=== PATIENT | female | born 1945 | race Caucasian/White ===

== ENCOUNTER 2020-03-25 05:33 | Outpatient (RCR) | payer SELFPAY ==
[2020-03-21 11:56] VITALS: BP 159/99
[2020-03-21 12:38] LABS: BASOPHILS % (AUTO) 1 % (0-10); EOSINOPHILS % (AUTO) 1 % (0-10); HEMATOCRIT 35 % (35-52); HEMOGLOBIN 10.4 G/DL (11.5-16.0); LYMPHOCYTES # (AUTO) 0.6 X 10^3 (1.0-4.0); LYMPHOCYTES % (AUTO) 20 % (12-44); MEAN CORPUSCULAR HEMOGLOBIN 22 PG (25-34); MEAN CORPUSCULAR HGB CONC 30 G/DL (32-36); MEAN CORPUSCULAR VOLUME 75 FL (80-99); MEAN PLATELET VOLUME 10.3 FL (7.4-10.4); MONOCYTES # (AUTO) 0.5 X 10^3 (0.0-1.0); MONOCYTES % (AUTO) 16 % (0-12); NEUTROPHILS # (AUTO) 1.9 X 10^3 (1.8-7.8); NEUTROPHILS % (AUTO) 62 % (42-75); RED CELL DISTRIBUTION WIDTH 26.7 % (10.0-14.5); WHITE BLOOD COUNT 3.1 10^3/uL (4.3-11.0)
[2020-03-21 12:48] LABS: PLATELET COUNT 538 10^3/uL (130-400)
[~2020-03-25] VITALS: Ht 167.7 cm; Wt 84.0 kg
[~2020-03-25 05:33] MED LIST: AMLO10TA7 PO; AMLO5TAB4 PO; AMLO5TAB9 PO; AMOX500C2 PO; GUAI1CAP51 PO; OMEP40CA27 PO
== END 2020-03-25 10:19 | disposition home or self-care (01) ==
LOC: PREOP 05:33
PROVIDERS: ATTEND Surgery
DX: Z01.812 Encounter for preprocedural laboratory examination (principal); C18.9 Malignant neoplasm of colon, unspecified; Z11.2 Encounter for screening for other bacterial diseases; Z20.828 Contact with and (suspected) exposure to other viral communicable diseases
CPT/HCPCS: 36415; 85025; 86850; 86900; 86901; 87081; 87635

== ENCOUNTER 2020-03-27 08:10 | Inpatient (IN) | payer MEDICARE ==
[~2020-03-27] VITALS: Ht 167.7 cm; Wt 84.0 kg
[2020-03-27] VITALS (10 sets, daily range): BP systolic 131–179; BP diastolic 67–91
[2020-03-27] MEDS ORDERED: ceFAZolin 2 GM IV Premixed 50 ML IV ONE (08:15)
--- OUTSIDE RECORDS SUMMARY | 2020-03-27 08:28 | XMS REPORT | Continuity of Care Document ---
Author Organization Unknown Address Unknown Phone Unavailable Allergies Active Description Code Type Severity Reaction Onset Reported/Identified Relationship to Patient Clinical Status Yes levofloxacin [id number] Drug Allergy Unknown N/A 03/04/2020 Medications There is no data. Problems Date Dx Coded Attending Type Code Diagnosis Diagnosed By 03/06/2020 ROSE MARY MELTON MD, Ot C18.7 MALIGNANT NEOPLASM OF SIGMOID COLON 03/06/2020 ROSE MARY MELTON MD, Ot D50.0 IRON DEFICIENCY ANEMIA SECONDARY TO BLOO 03/06/2020 ROSE MARY MELTON MD, Ot E66.9 OBESITY, UNSPECIFIED 03/06/2020 ROSE MARY MELTON MD, Ot I10 ESSENTIAL (PRIMARY) HYPERTENSION 03/06/2020 ROSE MARY MELTON MD Ot K20.8 OTHER ESOPHAGITIS 03/06/2020 ROSE MARY MELTON MD, Ot K26.0 ACUTE DUODENAL ULCER WITH HEMORRHAGE 03/06/2020 ROSE MARY MELTON MD, Ot K26.3 ACUTE DUODENAL ULCER WITHOUT HEMORRHAGE 03/06/2020 ROSE MARY MELTON MD, Ot K29.5 0 UNSPECIFIED CHRONIC GASTRITIS WITHOUT BL 03/06/2020 ROSE MARY MELTON MD, Ot K44.9 DIAPHRAGMATIC HERNIA WITHOUT OBSTRUCTION 03/06/2020 ROSE MARY MELTON MD, Ot K57.9 0 DVRTCLOS OF INTEST, PART UNSP, W/O PERF 03/06/2020 ROSE MARY MELTON MD, Ot K63.5 POLYP OF COLON 03/06/2020 ROSE MARY MELTON MD, Ot K63.9 DISEASE OF INTESTINE, UNSPECIFIED 03/06/2020 ROSE MARY MELTON MD, Ot K64.8 OTHER HEMORRHOIDS 03/06/2020 ROSE MARY MELTON MD, Ot K92.2 GASTROINTESTINAL HEMORRHAGE, UNSPECIFIED 03/06/2020 ROSE MARY MELTON MD, Ot M54.9 DORSALGIA, UNSPECIFIED 03/06/2020 ROSE MARY MELTON MD, Ot R05 COUGH 03/06/2020 ROSE MARY MELTON MD, Ot Z68.3 0 BODY MASS INDEX (BMI) 30.0-30.9, ADULT 03/25/2020 DELANAHI DO, JALEEL B Ot C18.9 MALIGNANT NEOPLASM OF COLON, UNSPECIFIED 03/25/2020 KELECHIMINOT DO, JALEEL B Ot Z01.8 12 ENCOUNTER FOR PREPROCEDURAL LABORATORY E 03/25/2020 KELECHIMINOT DO, JALEEL B Ot Z01.8 18 ENCOUNTER FOR OTHER PREPROCEDURAL EXAMIN 03/25/2020 ZENAIDA HOPE, JALEEL B Ot C18.9 MALIGNANT NEOPLASM OF COLON, UNSPECIFIED 03/25/2020 KELECHIMINOT DO, JALEEL B Ot Z01.8 12 ENCOUNTER FOR PREPROCEDURAL LABORATORY E 03/25/2020 KELECHIMINOT , JALEEL B Ot Z01.8 18 ENCOUNTER FOR OTHER PREPROCEDURAL EXAMIN Procedures Code Description Performed By Per formed On [id number] EX CISION OF ESOPHAGOGASTRIC JUNCTION, EN 03/05/2020 [id number] EX CISION OF STOMACH, PYLORUS, ENDO, DIAG 03/05/2020 [id number] EX CISION OF DESCENDING COLON, ENDO, DIAG 03/05/2020 [id number] EX CISION OF SIGMOID COLON, ENDO, DIAGN 03/05/2020 [id number] EX CISION OF RECTUM, ENDO, DIAGN 03/05/2020 Results Test Result Range [facility] - 01/04/19 11:37 GLUCOSE 94 mg/dL 65-99 UREA NITROGEN (BUN) 11 mg/dL 7-25 CREATININE 0.77 mg/dL 0.60-0.93 eGFR NON-AFR. THAI 78 mL/min/1.73m2 > OR = 60 eGFR 90 mL/min/1.73m2 > OR = 60 BUN/CREATININE RATIO NOT APPLICABLE (calc) 6-22 SODIUM 140 mmol/L 135-146 POTASSIUM 4.1 mmol/L 3.5-5.3 CHLORIDE 109 mmol/L 98-110 CARBON DIOXIDE 24 mmol/L 20-32 CALCIUM 8.7 mg/dL 8.6-10.4 PROTEIN, TOTAL 7.0 g/dL 6.1-8.1 ALBUMIN 3.6 g/dL 3.6-5.1 GLOBULIN 3.4 g/dL (calc) 1.9-3.7 ALBUMIN/GLOBULIN RATIO 1.1 (calc) 1.0-2. 5 BILIRUBIN, TOTAL 0.3 mg/dL 0.2-1.2 ALKALINE PHOSPHATASE 97 U/L 33-130 AST 12 U/L 10-35 ALT 7 U/L 6-29 CBC - 03/01/20 08:27 WHITE BLOOD CELL COUNT 4.3 Thousand/uL 3 .8-10.8 RED BLOOD CELL COUNT 2.77 Million/uL 3.8 0-5.10 HEMOGLOBIN 4.2 g/dL 11.7-15.5 HEMATOCRIT 18.8 % 35.0-45.0 MCV 67.9 fL 80.0-100.0 MCH 15.2 pg 27.0-33.0 MCHC 22.3 g/dL 32.0-36.0 RDW 20.6 % 11.0-15.0 PLATELET COUNT 420 Thousand/uL 140-400 MPV 10.9 fL 7.5-12.5 ABSOLUTE NEUTROPHILS 2838 cells/uL 1500- 7800 ABSOLUTE LYMPHOCYTES 946 cells/uL 850-39 00 ABSOLUTE MONOCYTES 301 cells/uL 200-950 ABSOLUTE EOSINOPHILS 43 cells/uL 15-500 ABSOLUTE BASOPHILS 43 cells/uL 0-200 NEUTROPHILS 66 % NRG LYMPHOCYTES 22 % NRG MONOCYTES 7 % NRG EOSINOPHILS 1 % NRG BASOPHILS 1 % NRG ABSOLUTE BAND NEUTROPHILS 86 cells/uL 0- 750 ABSOLUTE METAMYELOCYTES 43 cells/uL BAND NEUTROPHILS 2 % NRG METAMYELOCYTES 1 % NRG ABSOLUTE NUCLEATED RBC 172 cells/uL NUCLEATED RBC 4 /100 WBC COMMENT(S) NRG Complete blood count (CBC) with automate d white blood cell (WBC) differential - 03/04/20 12:20 Blood leukocytes automated count (number/volume) 4.7 10*3/uL 4.3-11.0 Blood erythrocytes automated count (number/volume) 2.57 10*6/uL 4.35-5.85 Venous blood hemoglobin measurement (mass/volume) 4.0 g/dL 11.5-16.0 Blood hematocrit (volume fraction) 17 % 35-52 Automated erythrocyte mean corpuscular volume 65 [ foz_us] 80-99 Automated erythrocyte mean corpuscular h emoglobin (mass per erythrocyte) 16 pg 25-34 Automated erythrocyte mean corpuscular h emoglobin concentration measurement (mass/volume) 24 g/dL 32-36 Automated erythrocyte distribution width ratio 22. 5 % 10.0- 14.5 Automated blood platelet count (count/volume) 375 10*3/uL 130-400 Automated blood platelet mean volume measurement 10.1 [foz_us] 7.4-10.4 Automated blood neutrophils/100 leukocytes 60 % 42-75 Automated blood lymphocytes/100 leukocytes 21 % 12-44 Blood monocytes/100 leukocytes 18 % 0-12 Automated blood eosinophils/100 leukocytes 1 % 0-10 Automated blood basophils/100 leukocytes 1 % 0-10 Blood neutrophils automated count (number/volume) 2.8 10*3 1.8-7.8 Blood lymphocytes automated count (number/volume) 1.0 10*3 1.0-4.0 Blood monocytes automated count (number/volume) 0. 9 10*3 0.0-1.0 Automated eosinophil count 0.0 10*3/uL 0 .0-0.3 Automated blood basophil count (count/volume) 0.0 10*3/uL 0.0-0.1 Comprehensive metabolic panel - 03/04/20 12:20 Serum or plasma sodium measurement (moles/volume) 137 mmol/L 135-145 Serum or plasma potassium measurement (moles/volume) 3.7 mmol/L 3.6-5.0 Serum or plasma chloride measurement (moles/volume) 109 mmol/L 98-107 Carbon dioxide 21 mmol/L 21-32 Serum or plasma anion gap determination (moles/volume) 7 mmol/L 5-14 Serum or plasma urea nitrogen measurement (mass/volume ) 12 mg/dL 7-18 Serum or plasma creatinine measurement (mass/volume) 0.83 mg/dL 0.60-1.30 Serum or plasma urea nitrogen/creatinine mass ratio 14 NRG Serum or plasma creatinine measurement w ith calculation of estimated glomerular filtration rate > NRG Serum or plasma glucose measurement (mass/volume) 107 mg/dL 70-105 Serum or plasma calcium measurement (mass/volume) 7.7 mg/dL 8.5-10.1 Serum or plasma total bilirubin measurement (mass/volu me) 0.5 mg/dL 0.1-1.0 Serum or plasma alkaline phosphatase keshav surement (enzymatic activity/volume) 91 U/L 40-136 Serum or plasma aspartate aminotransfera se measurement (enzymatic activity/volume) 13 U/L 5-34 Serum or plasma alanine aminotransferase measurement (enzymatic activity/volume) < U/L 0-55 Serum or plasma protein measurement (mass/volume) 6.6 g/dL 6.4-8.2 Serum or plasma albumin measurement (mass/volume) 3.1 g/dL 3.2-4.5 CALCIUM CORRECTED 8.4 mg/dL 8.5-10.1 RED CELLS LEUKO REDUCED AS1 - 03/04/20 1 2:20 RED CELLS LEUKO REDUCED AS1 N OT AVAILABLE NRG Blood type T Indirect antibody screen pa lucero - 03/04/20 12:20 WRISTBAND NUMBER [id number] NRG ABO+Rh group AP NRG Blood group antibody screen NEGATIVE NR G PT panel in platelet poor plasma by coag ulation assay - 03/04/20 12:20 Prothrombin time (PT) in platelet poor plasma by coagu lation assay 14.5 s 12.2-14.7 INR in platelet poor plasma or blood by coagulation as say 1.1 0.8-1.4 Serum iron and total iron binding capaci ty panel - 03/04/20 13:10 TIBC 332 % 280-380 UIBC 324 % 55-450 Serum or plasma iron measurement (mass/volume) < % 35-180 Total iron binding capacity and transferrin saturation measurement 2 % 15-50 Serum or plasma ferritin measurement (mass/volume) 2.6 % 20.0-177.0 Complete blood count (CBC) with automate d white blood cell (WBC) differential - 03/04/20 20:50 Blood leukocytes automated count (number/volume) 5.4 10*3/uL 4.3-11.0 Blood erythrocytes automated count (number/volume) 3.32 10*6/uL 4.35-5.85 Venous blood hemoglobin measurement (mass/volume) 6.2 g/dL 11.5-16.0 Blood hematocrit (volume fraction) 23 % 35-52 Automated erythrocyte mean corpuscular volume 69 [ foz_us] 80-99 Automated erythrocyte mean corpuscular h emoglobin (mass per erythrocyte) 19 pg 25-34 Automated erythrocyte mean corpuscular h emoglobin concentration measurement (mass/volume) 27 g/dL 32-36 Automated erythrocyte distribution width ratio 26. 2 % 10.0- 14.5 Automated blood platelet count (count/volume) 382 10*3/uL 130-400 Automated blood platelet mean volume measurement 10.5 [foz_us] 7.4-10.4 Automated blood neutrophils/100 leukocytes 55 % 42-75 Automated blood lymphocytes/100 leukocytes 21 % 12-44 Blood monocytes/100 leukocytes 22 % 0-12 Automated blood eosinophils/100 leukocytes 1 % 0-10 Automated blood basophils/100 leukocytes 1 % 0-10 Blood neutrophils automated count (number/volume) 3.0 10*3 1.8-7.8 Blood lymphocytes automated count (number/volume) 1.1 10*3 1.0-4.0 Blood monocytes automated count (number/volume) 1. 2 10*3 0.0-1.0 Automated eosinophil count 0.1 10*3/uL 0 .0-0.3 Automated blood basophil count (count/volume) 0.1 10*3/uL 0.0-0.1 Manual absolute plasma cell count - 02/16 20:50 Blood monocytes/100 leukocytes 18 % NRG Manual blood segmented neutrophils/100 leukocytes 57 % NRG Blood band neutrophils/100 leukocytes 2 % NRG Manual blood lymphocytes/100 leukocytes 19 % NRG Manual eosinophils/100 leukocytes in nose 3 % NRG Manual blood basophils/100 leukocytes 1 % NRG Blood anisocytosis detection by light microscopy M ARKED NRG Blood poikilocytosis detection by light microscopy MODERATE NRG Manual blood nucleated erythrocytes/100 leukocytes ratio 3 NRG Blood hypochromia detection by light microscopy MA RKED NRG Blood microcytes detection by light microscopy MOD ERATE NRG Blood dacrocytes detection by light microscopy SLI GHT NRG Complete blood count (CBC) with automate d white blood cell (WBC) differential - 03/05/20 08:35 Blood leukocytes automated count (number/volume) 4.6 10*3/uL 4.3-11.0 Blood erythrocytes automated count (number/volume) 4.12 10*6/uL 4.35-5.85 Venous blood hemoglobin measurement (mass/volume) 8.8 g/dL 11.5-16.0 Blood hematocrit (volume fraction) 29 % 35-52 Automated erythrocyte mean corpuscular volume 71 [ foz_us] 80-99 Automated erythrocyte mean corpuscular h emoglobin (mass per erythrocyte) 21 pg 25-34 Automated erythrocyte mean corpuscular h emoglobin concentration measurement (mass/volume) 30 g/dL 32-36 Automated erythrocyte distribution width ratio 26. 1 % 10.0- 14.5 Automated blood platelet count (count/volume) 327 10*3/uL 130-400 Automated blood platelet mean volume measurement 10.6 [foz_us] 7.4-10.4 Automated blood neutrophils/100 leukocytes 58 % 42-75 Automated blood lymphocytes/100 leukocytes 22 % 12-44 Blood monocytes/100 leukocytes 18 % 0-12 Automated blood eosinophils/100 leukocytes 2 % 0-10 Automated blood basophils/100 leukocytes 1 % 0-10 Blood neutrophils automated count (number/volume) 2.7 10*3 1.8-7.8 Blood lymphocytes automated count (number/volume) 1.0 10*3 1.0-4.0 Blood monocytes automated count (number/volume) 0. 8 10*3 0.0-1.0 Automated eosinophil count 0.1 10*3/uL 0 .0-0.3 Automated blood basophil count (count/volume) 0.1 10*3/uL 0.0-0.1 Comprehensive metabolic panel - 03/05/20 08:35 Serum or plasma sodium measurement (moles/volume) 138 mmol/L 135-145 Serum or plasma potassium measurement (moles/volume) 3.6 mmol/L 3.6-5.0 Serum or plasma chloride measurement (moles/volume) 112 mmol/L 98-107 Carbon dioxide 18 mmol/L 21-32 Serum or plasma anion gap determination (moles/volume) 8 mmol/L 5-14 Serum or plasma urea nitrogen measurement (mass/volume ) 7 mg/dL 7-18 Serum or plasma creatinine measurement (mass/volume) 0.75 mg/dL 0.60-1.30 Serum or plasma urea nitrogen/creatinine mass ratio 9 NRG Serum or plasma creatinine measurement w ith calculation of estimated glomerular filtration rate > NRG Serum or plasma glucose measurement (mass/volume) 87 mg/dL 70-105 Serum or plasma calcium measurement (mass/volume) 7.8 mg/dL 8.5-10.1 Serum or plasma total bilirubin measurement (mass/volu me) 0.8 mg/dL 0.1-1.0 Serum or plasma alkaline phosphatase keshav surement (enzymatic activity/volume) 97 U/L 40-136 Serum or plasma aspartate aminotransfera se measurement (enzymatic activity/volume) 14 U/L 5-34 Serum or plasma alanine aminotransferase measurement (enzymatic activity/volume) 6 U/L 0-55 Serum or plasma protein measurement (mass/volume) 6.5 g/dL 6.4-8.2 Serum or plasma albumin measurement (mass/volume) 3.1 g/dL 3.2-4.5 CALCIUM CORRECTED 8.5 mg/dL 8.5-10.1 Coronavirus SARS-CoV-2 SO 2019 - 0 11:20 Coronavirus Ab [Units/volume] in Serum Negative Negative Complete blood count (CBC) with automate d white blood cell (WBC) differential - 03/06/20 05:23 Blood leukocytes automated count (number/volume) 5.0 10*3/uL 4.3-11.0 Blood erythrocytes automated count (number/volume) 3.91 10*6/uL 4.35-5.85 Venous blood hemoglobin measurement (mass/volume) 8.4 g/dL 11.5-16.0 Blood hematocrit (volume fraction) 28 % 35-52 Automated erythrocyte mean corpuscular volume 72 [ foz_us] 80-99 Automated erythrocyte mean corpuscular h emoglobin (mass per erythrocyte) 22 pg 25-34 Automated erythrocyte mean corpuscular h emoglobin concentration measurement (mass/volume) 30 g/dL 32-36 Automated erythrocyte distribution width ratio 26. 1 % 10.0- 14.5 Automated blood platelet count (count/volume) 289 10*3/uL 130-400 Automated blood platelet mean volume measurement 10.5 [foz_us] 7.4-10.4 Automated blood neutrophils/100 leukocytes 69 % 42-75 Automated blood lymphocytes/100 leukocytes 18 % 12-44 Blood monocytes/100 leukocytes 12 % 0-12 Automated blood eosinophils/100 leukocytes 1 % 0-10 Automated blood basophils/100 leukocytes 1 % 0-10 Blood neutrophils automated count (number/volume) 3.4 10*3 1.8-7.8 Blood lymphocytes automated count (number/volume) 0.9 10*3 1.0-4.0 Blood monocytes automated count (number/volume) 0. 6 10*3 0.0-1.0 Automated eosinophil count 0.1 10*3/uL 0 .0-0.3 Automated blood basophil count (count/volume) 0.0 10*3/uL 0.0-0.1 Whole blood basic metabolic panel - 04/18 05:23 Serum or plasma sodium measurement (moles/volume) 138 mmol/L 135-145 Serum or plasma potassium measurement (moles/volume) 3.4 mmol/L 3.6-5.0 Serum or plasma chloride measurement (moles/volume) 113 mmol/L 98-107 Carbon dioxide 16 mmol/L 21-32 Serum or plasma anion gap determination (moles/volume) 9 mmol/L 5-14 Serum or plasma urea nitrogen measurement (mass/volume ) 6 mg/dL 7-18 Serum or plasma creatinine measurement (mass/volume) 0.73 mg/dL 0.60-1.30 Serum or plasma urea nitrogen/creatinine mass ratio 8 NRG Serum or plasma creatinine measurement w ith calculation of estimated glomerular filtration rate > NRG Serum or plasma glucose measurement (mass/volume) 86 mg/dL 70-105 Serum or plasma calcium measurement (mass/volume) 7.3 mg/dL 8.5-10.1 Complete blood count (CBC) with automate d white blood cell (WBC) differential - 03/21/20 12:15 Blood leukocytes automated count (number/volume) 3.1 10*3/uL 4.3-11.0 Blood erythrocytes automated count (number/volume) 4.70 10*6/uL 4.35-5.85 Venous blood hemoglobin measurement (mass/volume) 10.4 g/dL 11.5-16.0 Blood hematocrit (volume fraction) 35 % 35-52 Automated erythrocyte mean corpuscular volume 75 [ foz_us] 80-99 Automated erythrocyte mean corpuscular h emoglobin (mass per erythrocyte) 22 pg 25-34 Automated erythrocyte mean corpuscular h emoglobin concentration measurement (mass/volume) 30 g/dL 32-36 Automated erythrocyte distribution width ratio 26. 7 % 10.0- 14.5 Automated blood platelet count (count/volume) 538 10*3/uL 130-400 Automated blood platelet mean volume measurement 10.3 [foz_us] 7.4-10.4 Automated blood neutrophils/100 leukocytes 62 % 42-75 Automated blood lymphocytes/100 leukocytes 20 % 12-44 Blood monocytes/100 leukocytes 16 % 0-12 Automated blood eosinophils/100 leukocytes 1 % 0-10 Automated blood basophils/100 leukocytes 1 % 0-10 Blood neutrophils automated count (number/volume) 1.9 10*3 1.8-7.8 Blood lymphocytes automated count (number/volume) 0.6 10*3 1.0-4.0 Blood monocytes automated count (number/volume) 0. 5 10*3 0.0-1.0 Automated eosinophil count 0.0 10*3/uL 0 .0-0.3 Automated blood basophil count (count/volume) 0.0 10*3/uL 0.0-0.1 Blood type T Indirect antibody screen pa lucero - 03/21/20 12:15 WRISTBAND NUMBER BC [id number] NRG ABO+Rh group AP NRG Blood group antibody screen NEGATIVE NR G Methicillin resistant Staphylococcus aur eus (MRSA) screening culture - 03/21/20 12:15 Methicillin resistant Staphylococcus aureus (MRSA) scr eening culture NEG NRG Encounters ACCT No. Visit Date/Time Discharge Status Pt. Type Provider Facility Loc./Unit Complaint [id number] 03/01/2020 08:20:00 03/01/2020 23:59: 59 CLS Outpatient KARIE DICKINSON [facility] ([facility] [id number] 03/01/2020 08:20:00 Document Registration [id number] 01/04/2019 10:40:00 Document Registration [id number] 03/25/2020 05:33:00 020 10:19:00 DIS Outpatient JALEEL ESTEVEZ DO [facility] PREOP COLON CANCER [id number] 03/04/2020 12:27:00 020 12:15:00 DIS Outpatient ROSE MARY MELTON MD [facility] 4TH SYMPTOMATIC ANEMIA [id number] 05/23/2014 08:06:00 014 23:59:59 CLS Outpatient [id number] 03/27/2020 10:00:00 P EN Preadmit JALEEL ESTEVEZ DO [facility]
[2020-03-27] MEDS ORDERED: BUP/EPI 0.5% 1:200,000 (MARCAINE) 10ML VIAL IJ ONE (08:48)
[2020-03-27] MEDS ORDERED: FAMOTIDINE 20MG/2ML IV (PEPCID) IV ONE (09:15)
[2020-03-27] MEDS: LACTATED RINGERS 1,000 ML IV PRN ×2 (09:24→11:00)
[2020-03-27] MEDS ORDERED: FAMOTIDINE 20MG/2ML IV (PEPCID) ONE (09:26)
[2020-03-27] MEDS ORDERED: MIDAZOLAM 2 MG/2 ML (VERSED) VIAL ONE (10:34)
[2020-03-27] MEDS ORDERED: proPOfol 200 MG/20 ML (DIPRIVAN) VIAL IV ONE (10:35)
[2020-03-27] MEDS ORDERED: SEVOFLURANE (ULTANE) 15 ML INHAL SOLN ONE ×7 (10:35→12:38)
[2020-03-27] MEDS ORDERED: ONDANSETRON 4 MG/2 ML (SDV) Z0FRAN ONE (10:35)
[2020-03-27] MEDS ORDERED: ROCURONIUM 10 MG/ML 5 ML SYRINGE IV ONE (10:35)
[2020-03-27] MEDS ORDERED: fentaNYL INJECTION 100 MCG/2 ML AMP ONE ×2 (10:35→11:21)
[2020-03-27] MEDS ORDERED: LIDOCAINE PF 2% 5 ML (XYLOCAINE) VIAL ONE (10:35)
--- NOTE | 2020-03-27 10:38 | Progress Note-Pre Operative ---
Pre-Operative Progress Note H&P Reviewed The H&P was reviewed, patient examined and no changes noted. Time Seen by Provider: 10:01 Date H&P Reviewed: Mar 27, 2020 Time H&P Reviewed: 10:02 Pre-Operative Diagnosis: Sigmoid Colon CA JALEEL ESTEVEZ DO Mar 27, 2020 10:37
[2020-03-27] MEDS ORDERED: ESMOLOL 100 MG/10 ML (BREVIBLOC) VIAL ONE (11:32)
--- NOTE | 2020-03-27 12:12 | Progress Note-Post Operative ---
Post-Operative Progess Note Surgeon (s)/Combat Systems Operator [employer] (s) Surgeon JALEEL ESTEVEZ DO Combat Systems Operator [employer]: Guillermo Pre-Operative Diagnosis Sigmoid Colon CA Post-Operative Diagnosis same pending path Procedure & Operative Findings Date of Procedure 03/27/20 Procedure Performed/Findings 1. Lap hand assisted sigmoid colon resection 2. Takedown of splenic flexure Anesthesia Type GET Estimated Blood Loss Estimated blood loss (mL): minimal Specimens/Packing Specimens Removed portion of desc colon and sigmoid colon JALEEL ESTEVEZ DO Mar 27, 2020 12:12
[2020-03-27] MEDS ORDERED: ROPIVACAINE 5MG/ML 30ML VIAL ONE (12:19)
[2020-03-27] MEDS ORDERED: ONDANSETRON 4 MG/2 ML (SDV) Z0FRAN IVP PRN (12:30)
[2020-03-27] MEDS ORDERED: HYDROmorphone 2 MG/ML VIAL (DILAUDID) IV ONE (12:30)
[2020-03-27] MEDS ORDERED: GLYCOPYRROLATE 0.2 MG/ML (ROBINUL) 2 ML VIAL ONE (12:39)
[2020-03-27] MEDS ORDERED: NEOSTIGMINE 3 MG/3 ML VIAL ONE (12:39)
--- NOTE | 2020-03-27 13:27 | NUR ---
PATIENT TO FLOOR AT THIS TIME VIA CART ACCOMPANIED BY RECOVERY ROOM STAFF. THIS RN WILL ASSUME CARE OF THIS PATIENT AT THIS TIME.
[2020-03-27] MEDS ORDERED: CATHETER FLUSH 10 ML SYR IV PRN (14:00)
[2020-03-27] MEDS: metroNIDAZOLE 500MG/100ML IVPB 100 ML IV SCH ×2 (14:08→22:37)
[2020-03-27] MEDS: KETOROLAC 30 MG/ML VIAL IVP SCH ×2 (14:08→20:18)
[2020-03-27] MEDS: LACTATED RINGERS 1,000 ML IV SCH ×2 (14:08→20:21)
[2020-03-27] MEDS: morphine INJ 4 MG/ML 1 ML (VIAL/SYRINGE) IVP PRN ×2 (14:08→17:44)
[2020-03-27] MEDS: ACETAMINOPHEN 500 MG TAB (TYLENOL) PO SCH ×2 (14:09→22:00)
[2020-03-27] MEDS: ONDANSETRON 4 MG/2 ML (SDV) Z0FRAN IVP PRN ×2 (14:25→20:18)
--- NOTE | 2020-03-27 16:28 | NUR ---
dilaudid given in PACU by Betty Dunaway RN patient cont to be in pain after pain medications
[2020-03-27] MEDS: ceFAZolin 2 GM IV Premixed 50 ML IV SCH (17:44)
[2020-03-28 00:11] VITALS: BP 162/75
[2020-03-28] MEDS: morphine INJ 4 MG/ML 1 ML (VIAL/SYRINGE) IVP PRN (00:22)
[2020-03-28] MEDS: ceFAZolin 2 GM IV Premixed 50 ML IV SCH (02:00)
[2020-03-28] MEDS: KETOROLAC 30 MG/ML VIAL IVP SCH ×4 (02:21→20:08)
[2020-03-28 04:25] VITALS: BP 129/75
--- NOTE | 2020-03-28 06:48 | Anesthesia-General Post-Op ---
General Patient Condition Mental Status/LOC: Same as Preop Cardiovascular: Satisfactory Nausea/Vomiting: Absent Respiratory: Satisfactory Pain: Controlled Complications: Absent Post Op Complications Complications None Follow Up Care/Instructions Patient Instructions None needed. Anesthesia/Patient Condition Patient Condition Patient is doing well, no complaints, stable vital signs, no apparent adverse anesthesia problems. No complications reported per nursing. REDD SULLIVAN CRNA Mar 28, 2020 06:48
[2020-03-28] MEDS: LACTATED RINGERS 1,000 ML IV SCH ×2 (07:05→13:59)
[2020-03-28] MEDS: ACETAMINOPHEN 500 MG TAB (TYLENOL) PO SCH ×3 (07:06→20:09)
--- NOTE | 2020-03-28 07:12 | OPERATIVE REPORT ---
DATE OF SERVICE: PREOPERATIVE DIAGNOSES: Descending colon cancer. POSTOPERATIVE DIAGNOSES: Descending colon cancer. PROCEDURES: 1. Laparoscopic hand assisted sigmoid colon resection. 2. Takedown of splenic flexure. SURGEON: Jaleel Burgos DO VENDING MACHINE OPERATOR: Trey Li DO. ANESTHESIA: General endotracheal tube. SPECIMEN: Portion of sigmoid colon. BLOOD LOSS: Less than 100 mL. FLUIDS: Per anesthesia. POSTOPERATIVE CONDITION: Stable. INDICATION FOR PROCEDURE: The patient is a 75-year-old female who unfortunately has a descending colon cancer, needed a resection. FINDINGS: The patient had a colon mass resected most likely in the descending and sigmoid area; felt the liver, did not feel any masses in the liver. PROCEDURE NOTE: After informed consent was obtained, the patient was brought to the operating room, placed on the table in lithotomy position. She was sterilely prepped and draped in normal fashion. A midline incision made with #15 blade, carried down through the skin into subcutaneous tissue, then deepened down to subcutaneous tissue with Bovie electrocautery down to the fascia. Fascia incised with electrocautery, bluntly entered the abdomen, swept a finger around and protected the bowel with my hand as I increased the incision superiorly and inferiorly just enough able to get my hand in. We then placed Lopez and a malleable blade and I made a small incision after first infiltrating with local, made a stab incision with #11 blade a 10 mm incision, carried down through the skin and subcutaneous tissue, then advanced the VersaStep system under direct visualization, watched to come in and then placed a 10 mm port. At this point, then placed the wound protector and then placed a hand port. Next, in the right lower quadrant, placed another 5 mm incisions with the VersaStep using local lidocaine, 11 blade for the stab incision and the VersaStep system, all done under direct visualization. Created pneumoperitoneum, able to visualize the tattooing, could feel the mass, started carefully dissecting with the Bovie electrocautery, coming across the white line of Toldt and the pericolic gutter and then taking this all the way up to the splenic flexure and taking the splenic flexure down using the Bovie cautery as well as hand dissection to dissect and pull the intestine medially. Once it completely freed everything up, I elected to open the hand port, actually able to pull this portion of colon out and elected to do a wedge resection to remove this portion of cancer with at least 6 cm on either side, used a contour stapler distally after getting through the mesentery with Bovie electrocautery and then placed a contour stapler clamping and then firing and transecting and then going above and again made a defect in the mesentery with Bovie electrocautery and blunt dissection. Placed a contour stapler here and then fired thereby transecting and coming across the mesentery going down all the way to the retroperitoneum with a LigaSure, clamping, coagulating and transecting and in this fashion removing this entire portion of colon and passed off the table. At this point, I elected to do a [id number] anastomosis, made a defect in the tinea and then placed a FACUNDO one on either side, clamped it together, held for 30 seconds through a crotch stitch of 3-0 Vicryl and then fired thereby creating a [id number] functional end-to-end anastomosis and then closed the colocolostomy with another FACUNDO-75. This closed nicely. At this point, I then copiously irrigated with normal saline and suctioned all this out. Anastomosis looked good. There was no bleeding. At this point, then pulled the omentum over the intestine and then closed the midline incision closing with #1 double stranded PDS suture running from superior portion to inferior portion, tying to itself, copiously irrigated incisions with normal saline and closing this incision with ana. Area was cleaned and dried, dressing was placed. The patient tolerated the procedure. Sponge, instrument and needle count correct at the end of the case and she was transferred to recovery room in stable condition. Dr. Li assisted in this case helping to make incisions, close incisions, identify anatomy, hold anatomy out of the way. Job ID: [id number] DocumentID: [id number] Dictated Date: 03/27/2020 21:43:43 Technical Training Specialist Date: 03/28/2020 07:11:15 Dictated By: JALEEL BURGOS,
[2020-03-28 08:00] VITALS: BP 152/69
[2020-03-28] MEDS: PANTOPRAZOLE 40 MG (PROTONIX) VIAL IVP SCH (08:28)
--- NOTE | 2020-03-28 11:28 | Progress Note - Surgery ---
Subjective Date Seen by a Provider: Mar 28, 2020 Time Seen by a Provider: 09:28 Subjective/Events-last exam Pt seen and examined, states she feels pretty good today (pain controlled) and tolerating clears. She has not passed gas yet. Review of Systems Pulmonary: No Dyspnea, No Cough Cardiovascular: No: Chest Pain Gastrointestinal: No: Nausea, Vomiting Objective Exam Vital Signs Date Time Temp Pulse Resp B/P (MAP) Pulse Ox O2 Delivery O2 Flow Rate FiO2 03/28/20 08:00 36.2 64 20 152/69 (96) 94 Nasal Cannula 2.00 03/28/20 07:06 36.2 03/28/20 04:25 36.2 98 18 129/75 (93) 92 Nasal Cannula 2.00 03/28/20 03:00 36.2 03/28/20 02:21 36.6 03/28/20 01:00 36.6 03/28/20 00:22 36.6 03/28/20 00:11 36.6 54 16 162/75 (104) 93 Nasal Cannula 2.00 03/27/20 22:01 91 Room Air 03/27/20 22:00 36.2 03/27/20 20:51 94 Nasal Cannula 2.00 03/27/20 20:50 36.2 03/27/20 20:18 36.2 03/27/20 19:57 36.2 65 18 138/67 (90) 94 Nasal Cannula 2.00 03/27/20 15:41 36.5 78 20 141/73 (95) 96 OxyMask 5.00 03/27/20 14:56 94 OxyMask 5.00 03/27/20 13:20 36.8 18 157/81 (106) 93 OxyMask 6 03/27/20 13:18 OxyMask 6 03/27/20 13:10 OxyMask 6 03/27/20 13:10 19 157/81 (106) 93 OxyMask 6 03/27/20 13:00 OxyMask 6 03/27/20 13:00 22 168/80 (109) 93 OxyMask 6 03/27/20 12:50 24 177/87 (117) 93 OxyMask 15 03/27/20 12:45 OxyMask 15 03/27/20 12:40 23 178/88 (118) 96 OxyMask 6 03/27/20 12:30 17 178/91 (120) 95 15 03/27/20 12:27 OxyMask 10 03/27/20 12:27 36.4 20 179/90 (119) 95 OxyMask 10 I & O 03/28/20 07:00 Intake Total 1850 ml Output Total 1030 ml Balance 820 ml Capillary Refill : Less Than 3 SecondsLess Than 3 Seconds General Appearance: No Apparent Distress, WD/WN Respiratory: Lungs Clear, Normal Breath Sounds, No Accessory Muscle Use, No Re spiratory Distress Cardiovascular: Regular Rate, Rhythm, No Murmur Gastrointestinal: soft, tenderness (minimal at midline incision), other (incisions are C/D/I) Assessment/Plan Assessment/Plan Assessment/Plan S/P Colon resection with primary anastomosis Pt encouraged to ambulate and use IS. Will increase to a soft diet. Benji BATES. JALEEL ESTEVEZ DO Mar 28, 2020 11:28
[2020-03-28 12:00] VITALS: BP 170/78
[2020-03-28] MEDS: ENOXAPARIN 40 MG/0.4 ML (LOVENOX) SYR SC SCH (12:05)
--- NOTE | 2020-03-28 13:00 | NUR ---
PT AMBULATED 300FT IN HALLWAY WITH WALKER, STANDBY ASSIST. TOLERATED WELL.
[2020-03-28] MEDS ORDERED: amLODIPine 5 MG (NORVASC) TAB PO ONE (14:00)
[2020-03-28 16:26] VITALS: BP 149/71
[2020-03-28 19:49] VITALS: BP 153/81
[2020-03-29 00:53] VITALS: BP 167/65
[2020-03-29] MEDS: KETOROLAC 30 MG/ML VIAL IVP SCH ×2 (02:00→07:47)
[2020-03-29 03:56] VITALS: BP 181/79
[2020-03-29] MEDS: ACETAMINOPHEN 500 MG TAB (TYLENOL) PO SCH (05:17)
[2020-03-29 07:42] VITALS: BP 190/80
[2020-03-29 07:53] VITALS: BP 168/80
[2020-03-29] MEDS ORDERED: amLODIPine 5 MG (NORVASC) TAB PO SCH (09:00)
[2020-03-29] MEDS: PANTOPRAZOLE 40 MG (PROTONIX) VIAL IVP SCH (09:06)
[2020-03-29 11:28] VITALS: BP 180/70
--- NOTE | 2020-03-29 12:03 | Discharge Inst-Surgical ---
Discharge Inst-Surgical Depart Medication/Instructions New, Converted or Re-Newed RX: Other (use ibuprofen or tylenol at home for pain) Patient Instructions Follow up Appt: Make appointment for 1 week. [phone] Instructions: No lifting greater than 20 pounds. No strenuous activity. May shower in 24 hours, no tub bath or soaking. Use incentive spirometer at home as directed. No Smoking Skin/Wound Care: May remove bandages in am. You need to leave the ana in place and come in to clinic to have them removed. Symptoms to Report: Appetite Changes, Extremity Discoloration, Numbness/Tingling, Swelling Increased , Bleeding Excessive, Eyesight Changes, Pain Increased, Urine Color Change, Constipation(Persistent), Fever over 101 degree F, Pain/Pressure in chest, Urinating Difficulty, Cough Up/Vomit Blood, Heart Beat Irreg/Pounding, Pain/Pressure in jaw, Cramps in feet or legs, Lightheadedness, Pain/Pressure in shoulder, Diarrhea(Persistent), Memory Changes Suddenly, Questions/Concerns, Weight gain consecutive days, Dizziness/Fainting, Nausea/Vomiting, Shortness of Breath, Weight gain over 2 pounds If questions or concerns contact your physician Or seek help at emergency department. Activity Activity as Tolerated: Yes Activity Instructions: Avoid Stress to Incision Driving Instructions: No Driving/Refer to Dr. Arreaga Discharge Diet: No Restrictions Diet After 24 Hours: Clear Liquid if Nauseous If Any Problems/Questions/Issu: Contact Your Physician, Go to Emergency Room Skin/Wound Care Infection Signs and Symptoms: Increased Redness, Foul Odor of Wound, Increased Drainage, Skin Itchy or Has a Rash, Increased Swelling, Temperature Above 101 F Bathing Instructions: Shower Stitches/[place]/Dermabond Dis: Care of JALEEL Singh DO Mar 29, 2020 12:03
[2020-03-29] MEDS: ENOXAPARIN 40 MG/0.4 ML (LOVENOX) SYR SC SCH (12:54)
[2020-03-29 13:20] VITALS: BP 180/70
== END 2020-03-29 13:20 | disposition home or self-care (01) | DRG 331 ==
LOC: 4TH 08:10 → SURG 08:11 → 4TH 13:43
PROVIDERS: ADMIT Surgery; ATTEND Surgery
PROC: 0DTN4ZZ Resection of Sigmoid Colon, Percutaneous Endoscopic Approach (ICD-10-PCS; principal; 2020-03-27 10:47)
DX: C18.7 Malignant neoplasm of sigmoid colon (principal)
CPT/HCPCS: 36415; 82565; 86850; 86900; 86901; 94664; 94760

== ENCOUNTER 2020-04-29 13:25 | Outpatient (RCR) | payer MEDICAID, OTHER ==
[~2020-04-29 13:25] MED LIST changes: +AMLO-250 PO; +AMLO-251 PO; -AMLO10TA7 PO; -AMLO5TAB9 PO
[2020-04-29 13:44] LABS: BASOPHILS % (AUTO) 1 % (0-10); EOSINOPHILS % (AUTO) 1 % (0-10); HEMATOCRIT 35 % (35-52); HEMOGLOBIN 10.5 G/DL (11.5-16.0); LYMPHOCYTES # (AUTO) 0.7 X 10^3 (1.0-4.0); LYMPHOCYTES % (AUTO) 20 % (12-44); MEAN CORPUSCULAR HEMOGLOBIN 22 PG (25-34); MEAN CORPUSCULAR HGB CONC 30 G/DL (32-36); MEAN CORPUSCULAR VOLUME 72 FL (80-99); MEAN PLATELET VOLUME 10.1 FL (7.4-10.4); MONOCYTES # (AUTO) 0.6 X 10^3 (0.0-1.0); MONOCYTES % (AUTO) 15 % (0-12); NEUTROPHILS # (AUTO) 2.3 X 10^3 (1.8-7.8); NEUTROPHILS % (AUTO) 63 % (42-75); PLATELET COUNT 372 10^3/uL (130-400); WHITE BLOOD COUNT 3.6 10^3/uL (4.3-11.0)
[2020-04-29 14:13] LABS: ALANINE AMINOTRANSFERASE 13 U/L (0-55); ALBUMIN 3.6 GM/DL (3.2-4.5); ALKALINE PHOSPHATASE 103 U/L (40-136); BILIRUBIN,TOTAL 0.3 MG/DL (0.1-1.0); BUN/CREATININE RATIO 15; CALCIUM 8.6 MG/DL (8.5-10.1); CARBON DIOXIDE 24 MMOL/L (21-32); CHLORIDE 107 MMOL/L (98-107); CREATININE SERUM 0.84 MG/DL (0.60-1.30); GFR ESTIMATED > 60; GLUCOSE 99 MG/DL (70-105); POTASSIUM 3.5 MMOL/L (3.6-5.0); SODIUM 138 MMOL/L (135-145); TOTAL PROTEIN 7.7 GM/DL (6.4-8.2)
== END 2020-07-28 | disposition home or self-care (01) ==
LOC: ONC 13:25
PROVIDERS: ATTEND Internal Medicine Hematology & Oncology
DX: C18.7 Malignant neoplasm of sigmoid colon (principal); D50.9 Iron deficiency anemia, unspecified; Z90.711 Acquired absence of uterus with remaining cervical stump
CPT/HCPCS: 80053; 82378; 85025; G0463; 99214

== ENCOUNTER → 2020-05-03 | Outpatient (CLI) | payer OTHER ==
[~2020-05-03] MED LIST changes: -AMLO-250 PO; -AMLO-251 PO; +AMLO10TA7 PO; +AMLO5TAB9 PO; +CATHETER FLUSH 10 ML SYR IV PRN; +HOLD METFORMIN - RECEIVED CONTRAST 20 ML VIAL IV SCH; +IOHEXOL 350 MG/ML 100 ML (OMNIPAQUE 350) VIAL IV ONE; +NS 100 ML (IVPB) BAG IV ONE
--- NOTE | 2020-05-03 14:04 | Diagnostic Imaging Report ---
PROCEDURE: CT abdomen and pelvis with and without contrast. TECHNIQUE: Precontrast acquisitions were acquired through the abdomen and pelvis. Multiple contiguous axial images were obtained through the abdomen and pelvis after the administration of intravenous contrast. Auto Exposure Controls were utilized during the CT exam to meet ALARA standards for radiation dose reduction. DATE: May 03, 2020. COMPARISON: CT abdomen pelvis May 18, 2012. INDICATION: 75-year-old female, history of malignancy involving the sigmoid colon. Evaluation for residual or recurrent malignancy and/or metastatic disease. FINDINGS: There is a cystic lesion in the right middle lobe with adjacent groundglass attenuation which is an interval change since May 18, 2012. There are mild linear opacities in the right lower lobe likely relating to atelectasis. There is an additional cystic lesion in the lingula with adjacent groundglass lung attenuation which is also an interval change. There are peripheral reticular opacities present. There is no characteristic peripheral honeycombing. There is no identified bronchiectasis. There is no pleural effusion. The heart is normal in size and contour. There is no identified pericardial effusion. The liver is normal in size and contour. There is no identified liver lesion. The main, right, and left portal veins are patent. The gallbladder is unremarkable. There is no identified intrahepatic or extra hepatic bile duct dilation. The main pancreatic duct is not abnormally dilated. Unremarkable appearance of the pancreatic parenchyma. The spleen is normal in size. The adrenal glands are unremarkable. There is a low-attenuation left renal lesion on axial image 41 which measures 1.5 cm in size. Internal attenuation on the delayed postcontrast portion of the exam measures 20 Hounsfield units. Internal attenuation on the precontrast portion of the exam measures 20 Hounsfield units. The lesion is present on May 18, 2012 and is unchanged in size. There is a low-attenuation left renal lesion on axial image 34 measuring 9 mm in size which is too small to characterize. There are bilateral benign parapelvic cysts. There is no identified renal or ureteral stone. The urinary bladder is not distended. There is diffuse runner bladder wall thickening which may relate to under distention, cystitis, and/or chronic outlet obstruction. The uterus is not seen and may be surgically absent. There are sutures at the level of the proximal sigmoid colon. There is very mild adjacent inflammatory stranding. The intestinal tract is not distended. The appendix is unremarkable. There is no free intraperitoneal air. There is no drainable fluid collection. There is no free pelvic fluid. There are postsurgical changes along the right lower anterior abdominal wall. There are atherosclerotic calcifications. There is no identified abnormally enlarged lymph node in the abdomen or pelvis which meets CT size criteria for adenopathy. There are multilevel degenerative changes of the spine. There is no identified bone lesion suspicious for bone metastasis. IMPRESSION: CT ABDOMEN AND PELVIS. 1. Benign left renal cyst and 9 mm left renal lesion too small to characterize. 2. Benign bilateral parapelvic cysts. 3. Sutures of the level of the proximal sigmoid colon with mild adjacent inflammatory stranding. No focal fluid collection or free pelvic fluid. 4. No evidence of residual or recurrent malignancy or metastatic disease within the abdomen or pelvis. 5. Findings suggesting interstitial lung disease with some areas of cystic lung change. This may be better assessed with dedicated CT chest without contrast with high-resolution images. Dictated by: Dictated on workstation # [id number]
== END ==
LOC: RAD 11:17
PROVIDERS: ATTEND Internal Medicine Hematology & Oncology
DX: C18.7 Malignant neoplasm of sigmoid colon (principal); N28.1 Cyst of kidney, acquired; N94.89 Other specified conditions associated with female genital organs and menstrual cycle; Z98.890 Other specified postprocedural states
CPT/HCPCS: 74178

== ENCOUNTER 2020-09-12 12:50 | Outpatient (RCR) | payer MEDICARE, MEDICAID, OTHER ==
[~2020-09-12 12:50] MED LIST changes: +AMLO-250 PO; +AMLO-251 PO; -AMLO10TA7 PO; -AMLO5TAB9 PO; -CATHETER FLUSH 10 ML SYR IV PRN; -HOLD METFORMIN - RECEIVED CONTRAST 20 ML VIAL IV SCH; -IOHEXOL 350 MG/ML 100 ML (OMNIPAQUE 350) VIAL IV ONE; -NS 100 ML (IVPB) BAG IV ONE
[2020-09-12 13:00] LABS: BASOPHILS % (AUTO) 1 % (0-10); EOSINOPHILS % (AUTO) 1 % (0-10); HEMATOCRIT 47 % (35-52); HEMOGLOBIN 14.6 g/dL (11.5-16.0); LYMPHOCYTES # (AUTO) 0.6 10^3/uL (1.0-4.0); LYMPHOCYTES % (AUTO) 20 % (12-44); MEAN CORPUSCULAR HEMOGLOBIN 27 pg (25-34); MEAN CORPUSCULAR HGB CONC 31 g/dL (32-36); MEAN CORPUSCULAR VOLUME 87 fL (80-99); MEAN PLATELET VOLUME 10.5 fL (9.0-12.2); MONOCYTES # (AUTO) 0.5 10^3/uL (0.0-1.0); MONOCYTES % (AUTO) 16 % (0-12); NEUTROPHILS # (AUTO) 1.8 10^3/uL (1.8-7.8); NEUTROPHILS % (AUTO) 63 % (42-75); PLATELET COUNT 320 10^3/uL (130-400); WHITE BLOOD COUNT 2.9 10^3/uL (4.3-11.0)
[2020-09-12 13:32] LABS: CHLORIDE 105 MMOL/L (98-107); POTASSIUM 3.5 MMOL/L (3.6-5.0); SODIUM 140 MMOL/L (135-145)
[2020-09-12 13:33] LABS: ALANINE AMINOTRANSFERASE 15 U/L (0-55); ALBUMIN 3.6 GM/DL (3.2-4.5); ALKALINE PHOSPHATASE 127 U/L (40-136); BILIRUBIN,TOTAL 0.3 MG/DL (0.1-1.0); BUN/CREATININE RATIO 13; CALCIUM 8.7 MG/DL (8.5-10.1); CARBON DIOXIDE 25 MMOL/L (21-32); CREATININE SERUM 0.82 MG/DL (0.60-1.30); GFR ESTIMATED > 60; GLUCOSE 106 MG/DL (70-105); TOTAL PROTEIN 8.3 GM/DL (6.4-8.2)
[2020-12-12 12:54] LABS: BASOPHILS % (AUTO) 1 % (0-10); EOSINOPHILS # (AUTO) 0.1 10^3/uL (0.0-0.3); EOSINOPHILS % (AUTO) 2 % (0-10); HEMATOCRIT 48 % (35-52); HEMOGLOBIN 15.2 g/dL (11.5-16.0); LYMPHOCYTES # (AUTO) 0.6 10^3/uL (1.0-4.0); LYMPHOCYTES % (AUTO) 20 % (12-44); MEAN CORPUSCULAR HEMOGLOBIN 29 pg (25-34); MEAN CORPUSCULAR HGB CONC 32 g/dL (32-36); MEAN CORPUSCULAR VOLUME 90 fL (80-99); MEAN PLATELET VOLUME 10.1 fL (9.0-12.2); MONOCYTES # (AUTO) 0.4 10^3/uL (0.0-1.0); MONOCYTES % (AUTO) 15 % (0-12); NEUTROPHILS # (AUTO) 1.8 10^3/uL (1.8-7.8); NEUTROPHILS % (AUTO) 62 % (42-75); PLATELET COUNT 315 10^3/uL (130-400); WHITE BLOOD COUNT 2.9 10^3/uL (4.3-11.0)
[2020-12-12 13:12] LABS: BUN/CREATININE RATIO 13; CARBON DIOXIDE 25 MMOL/L (21-32); CHLORIDE 106 MMOL/L (98-107); CREATININE SERUM 0.86 MG/DL (0.60-1.30); GFR ESTIMATED > 60; GLUCOSE 100 MG/DL (70-105); POTASSIUM 3.9 MMOL/L (3.6-5.0); SODIUM 139 MMOL/L (135-145)
[2020-12-12 13:13] LABS: ALANINE AMINOTRANSFERASE 15 U/L (0-55); ALBUMIN 3.8 GM/DL (3.2-4.5); ALKALINE PHOSPHATASE 123 U/L (40-136); BILIRUBIN,TOTAL 0.5 MG/DL (0.1-1.0); TOTAL PROTEIN 8.2 GM/DL (6.4-8.2)
== END 2020-12-11 | disposition home or self-care (01) ==
LOC: ONC 12:50
PROVIDERS: ATTEND Internal Medicine Hematology & Oncology
DX: C18.7 Malignant neoplasm of sigmoid colon (principal); I10 Essential (primary) hypertension; D50.9 Iron deficiency anemia, unspecified; Z90.711 Acquired absence of uterus with remaining cervical stump
CPT/HCPCS: 80053; 82378; 85025; G0463; 99213

== ENCOUNTER 2020-12-12 12:26 | Outpatient (RCR) | payer MEDICARE, MEDICAID, OTHER ==
[~2020-12-12 12:26] MED LIST changes: -OMEP40CA27 PO; +OMEP40CA6 PO
[2020-12-12 12:54] LABS: BASOPHILS % (AUTO) 1 % (0-10); EOSINOPHILS # (AUTO) 0.1 10^3/uL (0.0-0.3); EOSINOPHILS % (AUTO) 2 % (0-10); HEMATOCRIT 48 % (35-52); HEMOGLOBIN 15.2 g/dL (11.5-16.0); LYMPHOCYTES # (AUTO) 0.6 10^3/uL (1.0-4.0); LYMPHOCYTES % (AUTO) 20 % (12-44); MEAN CORPUSCULAR HEMOGLOBIN 29 pg (25-34); MEAN CORPUSCULAR HGB CONC 32 g/dL (32-36); MEAN CORPUSCULAR VOLUME 90 fL (80-99); MEAN PLATELET VOLUME 10.1 fL (9.0-12.2); MONOCYTES # (AUTO) 0.4 10^3/uL (0.0-1.0); MONOCYTES % (AUTO) 15 % (0-12); NEUTROPHILS # (AUTO) 1.8 10^3/uL (1.8-7.8); NEUTROPHILS % (AUTO) 62 % (42-75); PLATELET COUNT 315 10^3/uL (130-400); WHITE BLOOD COUNT 2.9 10^3/uL (4.3-11.0)
[2020-12-12 13:12] LABS: BUN/CREATININE RATIO 13; CARBON DIOXIDE 25 MMOL/L (21-32); CHLORIDE 106 MMOL/L (98-107); CREATININE SERUM 0.86 MG/DL (0.60-1.30); GFR ESTIMATED > 60; GLUCOSE 100 MG/DL (70-105); POTASSIUM 3.9 MMOL/L (3.6-5.0); SODIUM 139 MMOL/L (135-145)
[2020-12-12 13:13] LABS: ALANINE AMINOTRANSFERASE 15 U/L (0-55); ALBUMIN 3.8 GM/DL (3.2-4.5); ALKALINE PHOSPHATASE 123 U/L (40-136); BILIRUBIN,TOTAL 0.5 MG/DL (0.1-1.0); TOTAL PROTEIN 8.2 GM/DL (6.4-8.2)
== END 2021-03-12 | disposition home or self-care (01) ==
LOC: ONC 12:26
PROVIDERS: ATTEND Internal Medicine Hematology & Oncology
DX: C18.7 Malignant neoplasm of sigmoid colon (principal); I10 Essential (primary) hypertension; D63.0 Anemia in neoplastic disease; D50.9 Iron deficiency anemia, unspecified; Z90.711 Acquired absence of uterus with remaining cervical stump; Z79.899 Other long term (current) drug therapy
CPT/HCPCS: 80053; 82378; 82728; 85025; G0463; 99213

== ENCOUNTER → 2021-01-07 | Outpatient (CLI) | payer MEDICARE, MEDICAID ==
[~2021-01-07] MED LIST changes: +CATHETER FLUSH 10 ML SYR IV PRN; +HOLD METFORMIN - RECEIVED CONTRAST 20 ML VIAL IV SCH; +IOHEXOL 350 MG/ML 100 ML (OMNIPAQUE 350) VIAL IV ONE; +NS 100 ML (IVPB) BAG IV ONE; +OMEP40CA27 PO; -OMEP40CA6 PO
--- NOTE | 2021-01-07 08:45 | Diagnostic Imaging Report ---
EXAMINATION: CT chest with intravenous contrast. TECHNIQUE: Multiple contiguous axial images were obtained through the chest after the uneventful administration of intravenous contrast. All CT scans use one or more of the following dose optimizing techniques: automated exposure control, MA and/or KvP adjustment based on patient size and exam type or iterative reconstruction. HISTORY: Interstitial lung disease. COMPARISON: None available. FINDINGS: There is bibasilar scarring, right greater than left with mild associated bronchiectasis in the medial segment of the right lower lobe. There are single cysts in the right middle lobe and in the lingula with small amount of stranding fibrosis. Overall, findings have a morphology and distribution most suggestive of scarring from prior infection. No honeycombing. No groundglass. No architectural distortion. No pleural effusion. No pneumothorax. No suspicious nodules. There is no axillary or supraclavicular lymphadenopathy. There is no mediastinal lymphadenopathy. Heart size is normal. There are mild coronary artery calcifications. No pericardial effusion. Aorta is normal in caliber. Limited views of the upper abdomen are unremarkable. There are no suspicious osseous lesions. IMPRESSION: 1. Bibasilar scarring and mild bronchiectasis with a few cysts in a distribution and morphology most suggestive of sequela of prior infection. Dictated by: Dictated on workstation # [id number]
== END ==
LOC: RAD 08:45
PROVIDERS: ATTEND Physician Assistant
DX: J84.9 Interstitial pulmonary disease, unspecified (principal); J98.4 Other disorders of lung
CPT/HCPCS: 71260

== ENCOUNTER 2021-03-17 05:55 | Outpatient (CLI) | payer MEDICARE, MEDICAID ==
[~2021-03-17] VITALS: Ht 165.1 cm; Wt 86.9 kg
[~2021-03-17 05:55] MED LIST changes: -CATHETER FLUSH 10 ML SYR IV PRN; -HOLD METFORMIN - RECEIVED CONTRAST 20 ML VIAL IV SCH; -IOHEXOL 350 MG/ML 100 ML (OMNIPAQUE 350) VIAL IV ONE; -NS 100 ML (IVPB) BAG IV ONE; -OMEP40CA27 PO; +OMEP40CA6 PO
[2021-03-17] MEDS ORDERED: MULT-593 PO (14:01)
[2021-03-17] MEDS ORDERED: OMEP40CA6 PO (14:01)
[2021-03-17] MEDS ORDERED: [UNRECOGNIZED DRUG - CODE] PO (14:01)
[2021-03-17] MEDS ORDERED: FERR325T18 PO (14:01)
[2021-03-17] MEDS ORDERED: AMLO-251 PO (14:01)
[2021-03-17] MEDS ORDERED: LISI1TAB29 PO (14:01)
== END 2021-03-17 15:14 | disposition home or self-care (01) ==
LOC: PREOP 05:55
PROVIDERS: ATTEND Surgery
DX: Z01.818 Encounter for other preprocedural examination (principal)

== ENCOUNTER 2021-03-24 08:46 | Day surgery (SDC) | payer MEDICARE, MEDICAID ==
[~2021-03-24] VITALS: Ht 165.1 cm; Wt 86.9 kg
[~2021-03-24 08:46] MED LIST changes: +FERR325T18 PO; +LISI1TAB29 PO; +MULT-593 PO; +[UNRECOGNIZED DRUG - CODE] PO
[2021-03-24] MEDS ORDERED: LACTATED RINGERS 1,000 ML IV STA (08:47)
[2021-03-24] MEDS ORDERED: LACTATED RINGERS 1,000 ML IV ONE (08:53)
[2021-03-24 09:01] VITALS: BP 148/80
--- NOTE | 2021-03-24 09:26 | Progress Note-Pre Operative ---
Pre-Operative Progress Note H&P Reviewed The H&P was reviewed, patient examined and no changes noted. Time Seen by Provider: 09:23 Date H&P Reviewed: Mar 24, 2021 Time H&P Reviewed: :23 Pre-Operative Diagnosis: Hx of colon CA, surveillance colonoscopy JALEEL ESTEVEZ DO Mar 24, 2021 09:26
[2021-03-24] MEDS ORDERED: MIDAZOLAM 2 MG/2 ML (VERSED) VIAL ONE (10:54)
[2021-03-24] MEDS ORDERED: PROPOFOL INJECTION 50 ML IV ONE (10:54)
[2021-03-24 11:20] VITALS: BP 130/78
[2021-03-24 11:25] VITALS: BP 160/75
--- NOTE | 2021-03-24 11:26 | Progress Note-Post Operative ---
Post-Operative Progess Note Surgeon (s)/Director Of Social Services (s) Surgeon JALEEL ESTEVEZ DO Director Of Social Services: none Pre-Operative Diagnosis Hx of colon CA, surveillance colonoscopy Post-Operative Diagnosis polyp int hemorrhoid Procedure & Operative Findings Date of Procedure 03/24/21 Procedure Performed/Findings Colon with snare PROCEDURE NOTE: After informed consent was obtained, the patient was brought to the endoscopy suite, placed in bed in left lateral decubitus position. She was administered IV sedation by the IN FLIGHT REFUELING OPERATOR who then monitored her vitals the entire time, heart rate, blood pressure and pulse ox and the scope was inserted, pushed all the way to about 120 cm and pushed into the cecum. On the way in I looked at the anastomsis; which looked good, but on the way out there was some mild inflammation. I also found a polyp just proximal to the anastomosis in the descending colon and elected to do a snare polypectomy of it. Once in the cecum, took a picture of appendiceal orifice and then slowly withdrew the scope insufflating to look circumferentially at the garcia starting in the cecum, up the ascending colon to the hepatic flexure, then down the transverse colon, splenic flexure, into the descending colon down past the anastomosis and then into the rectal vault and retroflexed the scope. Took a picture of the internal hemorrhoids. The patient tolerated the procedure. She was recovered in endoscopy suite. Anesthesia Type IV sedation by IN FLIGHT REFUELING OPERATOR Estimated Blood Loss Estimated blood loss (mL): scant Specimens/Packing Specimens Removed desc colon polyp JALEEL ESTEVEZ DO Mar 24, 2021 11:26
--- NOTE | 2021-03-24 11:28 | Endoscopy Discharge Instruct ---
Endo Procedure/Findings Findings 1.: Polyp 2.: Internal Hemorrhoids Discharge Instructions - Activity: You might feel a little sleepy until tomorrow. This is due to the medicine you received to relax you. Until tomorrow, you should: NOT drive a car, operate machinery or power tools. NOT drink any alcoholic beverages. NOT make any important decisions or sign importortant papers. Do not return to work until tomorrow, unless otherwise instructed. Resume previous activities tomorrow. Diet: Start by taking liquids. If you tolerate liquids, advance to solid food. 1.: Colonoscopy in 1 year Notify Physician - If you experience excessive bleeding, unusual abdominal pain, fever, or chest pain, contact your doctor immediately. JALEEL ESTEVEZ DO Mar 24, 2021 11:28
[2021-03-24 11:45] VITALS: BP 155/81
[2021-03-24 11:59] VITALS: BP 155/81
--- NOTE | 2021-03-24 13:14 | Anesthesia-General Post-Op ---
MAC Patient Condition Mental Status/LOC: Same as Preop Cardiovascular: Satisfactory Nausea/Vomiting: Absent Respiratory: Satisfactory Pain: Controlled Complications: Absent Post Op Complications Complications None Follow Up Care/Instructions Patient Instructions None needed. Anesthesiology Discharge Order Discharge Order Patient is doing well, no complaints, stable vital signs, no apparent adverse anesthesia problems. No complications reported per nursing. BEST GRIFFIN CRNA Mar 24, 2021 13:14
== END 2021-03-24 11:58 | disposition home or self-care (01) ==
LOC: ENDO 08:46
PROVIDERS: ATTEND Surgery
DX: Z12.11 Encounter for screening for malignant neoplasm of colon (principal); D12.4 Benign neoplasm of descending colon; K64.8 Other hemorrhoids; K21.9 Gastro-esophageal reflux disease without esophagitis; I10 Essential (primary) hypertension; Z79.899 Other long term (current) drug therapy
CPT/HCPCS: 88305

== ENCOUNTER 2021-06-19 08:51 | Outpatient (RCR) | payer MEDICARE, MEDICAID ==
[2021-03-27 13:31] LABS: BASOPHILS % (AUTO) 1 % (0-10); EOSINOPHILS % (AUTO) 1 % (0-10); HEMATOCRIT 47 % (35-52); HEMOGLOBIN 15.2 g/dL (11.5-16.0); LYMPHOCYTES # (AUTO) 0.6 10^3/uL (1.0-4.0); LYMPHOCYTES % (AUTO) 16 % (12-44); MEAN CORPUSCULAR HEMOGLOBIN 29 pg (25-34); MEAN CORPUSCULAR HGB CONC 33 g/dL (32-36); MEAN CORPUSCULAR VOLUME 90 fL (80-99); MEAN PLATELET VOLUME 10.4 fL (9.0-12.2); MONOCYTES # (AUTO) 0.5 10^3/uL (0.0-1.0); MONOCYTES % (AUTO) 15 % (0-12); NEUTROPHILS # (AUTO) 2.5 10^3/uL (1.8-7.8); NEUTROPHILS % (AUTO) 68 % (42-75); PLATELET COUNT 337 10^3/uL (130-400); WHITE BLOOD COUNT 3.7 10^3/uL (4.3-11.0)
[2021-03-27 13:50] LABS: ALBUMIN 3.5 GM/DL (3.2-4.5); BILIRUBIN,TOTAL 0.4 MG/DL (0.1-1.0); CALCIUM 9.1 MG/DL (8.5-10.1); CREATININE SERUM 0.82 MG/DL (0.60-1.30); POTASSIUM 3.5 MMOL/L (3.6-5.0); TOTAL PROTEIN 8.2 GM/DL (6.4-8.2)
[~2021-06-19 08:51] MED LIST changes: -BARIUM SUSPENSION 2.1% (VANILLA SILQ) 450 ML PO ONE; -CATHETER FLUSH 10 ML SYR IV PRN; -HOLD METFORMIN - RECEIVED CONTRAST 20 ML VIAL IV SCH; -IOHEXOL 350 MG/ML 100 ML (OMNIPAQUE 350) VIAL IV ONE; -NS 100 ML (IVPB) BAG IV ONE
[2021-06-19 09:09] LABS: BASOPHILS % (AUTO) 1 % (0-10); EOSINOPHILS % (AUTO) 1 % (0-10); HEMATOCRIT 48 % (35-52); HEMOGLOBIN 15.6 g/dL (11.5-16.0); LYMPHOCYTES # (AUTO) 0.6 10^3/uL (1.0-4.0); LYMPHOCYTES % (AUTO) 14 % (12-44); MEAN CORPUSCULAR HEMOGLOBIN 30 pg (25-34); MEAN CORPUSCULAR HGB CONC 32 g/dL (32-36); MEAN CORPUSCULAR VOLUME 91 fL (80-99); MEAN PLATELET VOLUME 10.3 fL (9.0-12.2); MONOCYTES # (AUTO) 0.6 10^3/uL (0.0-1.0); MONOCYTES % (AUTO) 14 % (0-12); NEUTROPHILS # (AUTO) 2.8 10^3/uL (1.8-7.8); NEUTROPHILS % (AUTO) 70 % (42-75); PLATELET COUNT 298 10^3/uL (130-400)
[2021-06-19 09:19] LABS: ALBUMIN 3.6 GM/DL (3.2-4.5); BILIRUBIN,TOTAL 0.6 MG/DL (0.1-1.0); CALCIUM 9.3 MG/DL (8.5-10.1); CREATININE SERUM 0.85 MG/DL (0.60-1.30); POTASSIUM 3.4 MMOL/L (3.6-5.0); TOTAL PROTEIN 8.1 GM/DL (6.4-8.2)
== END 2021-06-25 | disposition home or self-care (01) ==
LOC: ONC 08:51
PROVIDERS: ATTEND Internal Medicine Hematology & Oncology
DX: C18.7 Malignant neoplasm of sigmoid colon (principal); N28.9 Disorder of kidney and ureter, unspecified; I10 Essential (primary) hypertension; Z90.711 Acquired absence of uterus with remaining cervical stump; Z79.899 Other long term (current) drug therapy
CPT/HCPCS: 80053; 82378; 85025; G0463; 99213

== ENCOUNTER → 2021-06-19 | Outpatient (CLI) | payer MEDICARE, MEDICAID ==
[~2021-06-19] MED LIST changes: +BARIUM SUSPENSION 2.1% (VANILLA SILQ) 450 ML PO ONE; +CATHETER FLUSH 10 ML SYR IV PRN; +HOLD METFORMIN - RECEIVED CONTRAST 20 ML VIAL IV SCH; +IOHEXOL 350 MG/ML 100 ML (OMNIPAQUE 350) VIAL IV ONE; +NS 100 ML (IVPB) BAG IV ONE
--- NOTE | 2021-06-19 10:47 | Diagnostic Imaging Report ---
PROCEDURE: CT abdomen and pelvis with and without contrast. TECHNIQUE: Precontrast acquisitions were acquired through the abdomen and pelvis. Multiple contiguous axial images were obtained through the abdomen and pelvis after the administration of intravenous contrast. Auto Exposure Controls were utilized during the CT exam to meet ALARA standards for radiation dose reduction. INDICATION: Colon carcinoma, follow-up. Comparison is made with prior CT from 05/03/2020. FINDINGS: Cystic changes of the right middle lobe and lingula appears similar to prior CT. No acute infiltrates are detected. No discrete liver mass is identified. The gallbladder is unremarkable. There is no biliary ductal dilatation. The pancreas and spleen are unremarkable. No adrenal mass is detected. Both kidneys again demonstrate parapelvic cysts. A cortical cyst left kidney is stable. No calculi or hydronephrosis is seen. Aorta is nonaneurysmal. No central retroperitoneal or mesenteric lymphadenopathy is seen. Postsurgical changes with suture line at the sigmoid colon is again noted. Bowel loops are normal caliber. There is no obstruction. There is no free fluid or fluid collection. No definite pelvic lymphadenopathy is seen. There are multiple surgical clips in the right groin. The bony structures are nonacute. IMPRESSION: Stable pre- and postcontrast CT of the abdomen and pelvis when compared with examination one year earlier. There is no evidence of abdominal or pelvic lymphadenopathy or metastatic disease. Dictated by: Dictated on workstation # [id number]
== END ==
LOC: RAD 09:05
PROVIDERS: ATTEND Nurse Practitioner Adult Health
DX: C18.7 Malignant neoplasm of sigmoid colon (principal); N28.9 Disorder of kidney and ureter, unspecified
CPT/HCPCS: 74178

== ENCOUNTER 2021-06-26 10:06 | Outpatient (RCR) | payer MEDICARE, MEDICAID ==
[~2021-06-26 10:06] MED LIST changes: -LISI1TAB29 PO; +LISI1TAB44 PO
== END 2021-08-29 | disposition home or self-care (01) ==
LOC: ONC 10:06
PROVIDERS: ATTEND Internal Medicine Hematology & Oncology
DX: C18.7 Malignant neoplasm of sigmoid colon (principal); N28.9 Disorder of kidney and ureter, unspecified; I10 Essential (primary) hypertension; Z90.49 Acquired absence of other specified parts of digestive tract; Z86.010 Personal history of colon polyps
CPT/HCPCS: 99213

== ENCOUNTER 2022-03-21 10:55 | Emergency (ER) | payer MEDICARE, MEDICAID ==
[~2022-03-21] VITALS: Ht 167 cm; Wt 90.7 kg
[2022-03-21] MEDS ORDERED: NS IV 1000 ML 1,000 ML IV STA (11:11)
--- NOTE | 2022-03-21 11:18 | ED Syncope ---
General Stated Complaint: SYNCOPE Source of Information: Patient (THERESE GONZALEZ) History of Present Illness Date Seen by Provider: Mar 21, 2022 Time Seen by Provider: 11:13 Initial Comments Patient is a 77-year-old female with a history of colon cancer who presents the ED by EMS for syncopal episode. Patient was at the parade today watching her granddaughter. She was sitting in a chair and started to feel lightheaded and dizzy. According to patient she passed out 3 times. Son-in-law and daughter states they attempted to wake her up and she did not respond. She states she can remember having the episodes. After the last episode they brought her here to the ED. On arrival she states she has some mild abdominal discomfort. She has no headache, current dizziness, visual changes, unilateral muscle weakness or sensory changes, facial droop, slurred speech, chest pain. She reports a chronic cough secondary to allergies without any worsening cough today. She denies history of CAD, stroke, COPD. She denies any blood thinner use. History of colectomy due to colon cancer. No fever, chills, body aches. She reports frequent urination yesterday. Patient denies nausea, vomit, diarrhea (THERESE GONZALEZ) Allergies and Home Medications Allergies Coded Allergies: levofloxacin (Verified Allergy, Unknown, 03/04/20) Patient Home Medication List Home Medication List Reviewed: Yes (THERESE GONZALEZ) Amlodipine Besylate (Amlodipine Besylate) 10 Mg Tablet, 10 MG PO DAILY, (R eported) Entered as Reported by: CHRIS HONEYCUTT on 03/17/21 1401 Ferrous Sulfate (Ferrous Sulfate) 325 Mg Tablet, 325 MG PO WEEK, (Reported) Entered as Reported by: CHRIS HONEYCUTT on 03/17/21 1401 Gluc/Chond/MSM/D3/Hyal/Demond Bor (Move Free Plus MSM-Vit D3 Tab) 1 Each Tablet, 1 EACH PO DAILY, (Reported) Entered as Reported by: CHRIS HONEYCUTT on 03/17/21 1401 Lisinopril/Hydrochlorothiazide (Lisinopril-Hctz 10-12.5 mg Tab) 1 Each Tablet, 1 EACH PO DAILY, (Reported) Entered as Reported by: CHRIS HONEYCUTT on 03/17/21 1401 Multivitamin with Minerals (Multiple Vitamin) 1 Each Tablet, 1 EACH PO DAILY, (Reported) Entered as Reported by: CHRIS HONEYCUTT on 03/17/21 1401 Omeprazole (Omeprazole) 40 Mg Capsule.dr, 40 MG PO DAILY, (Reported) Entered as Reported by: VICKY PAINTER on 03/21/20 1205 Omeprazole (Omeprazole) 40 Mg Capsule.dr, 40 MG PO DAILY, (Reported) Entered as Reported by: CHRIS HONEYCUTT on 03/17/21 1401 Review of Systems Constitutional: No chills, No diaphoresis, No malaise, No weakness EENTM: No hearing loss, No ear pain, No blurred vision, No double vision Respiratory: No cough, No dyspnea on exertion Cardiovascular: No chest pain, No edema Gastrointestinal: abdominal pain; No diarrhea, No nausea, No vomiting Musculoskeletal: No back pain, No joint pain, No joint swelling Skin: No change in color, No change in hair/nails Psychiatric/Neurological: Other (Syncope) (THERESE GONZALEZ) All Other Systems Reviewed Negative Unless Noted: Yes (THERESE GONZALEZ) Past Ggargmf-Fuzjlc-Jodjrq Hx Seasonal Allergies Seasonal Allergies: No (THERESE GONZALEZ) Past Medical History Surgeries: Yes (thyroid duct cyst x3 sx, ing hernia, bladder ) Abdominal, Bladder Surgery, Hysterectomy Respiratory: No Cardiac: Yes Neurological: No Genitourinary: No Gastrointestinal: Yes (colon cancer) Abdominal Hernia, Hiatal Hernia Musculoskeletal: No Endocrine: No HEENT: Yes (chronic cough) Cancer: Yes Colon Psychosocial: No Integumentary: No Blood Disorders: Yes (anemia) (THERESE GONZALEZ) Family Medical History Abdominal aortic aneurysm 19 FATHER Cardiovascular disease BOTHE GRANDFATHERS Completed stroke 19 MOTHER Diabetes mellitus G8 BROTHER G8 BROTHER Hypertension 19 FATHER 19 MOTHER MATERNAL GRANDMOTHER G8 BROTHER G8 BROTHER G8 SISTER Neoplasm MATERNAL GRANDMOTHER G8 BROTHER AAA, Cancer, Diabetes, Hypertension (THERESE GONZALEZ) Physical Exam Vital Signs Vital Signs - First Documented 03/21/22 10:55 Temp 36.3 Pulse 66 Resp 16 B/P (MAP) 138/104 (115) Pulse Ox 92 O2 Delivery Room Air (BRENDA CARROLL MD) Vital Signs Capillary Refill : (THERESE GONZALEZ) Height, Weight, BMI Height: '" Weight: lbs. oz. kg; 31.88 BMI Method:Stated General Appearance: No Apparent Distress, WD/WN HEENT: PERRL/EOMI, TMs Normal, Normal ENT Inspection, Pharynx Normal Neck: Full Range of Motion, Normal Inspection, Non Tender, Supple Cardiovascular: Regular Rate, Rhythm, No Edema, No Gallop, No JVD, No Murmur Respiratory: Chest Non Tender, Lungs Clear, Normal Breath Sounds, No Accessory Muscle Use, No Respiratory Distress Gastrointestinal: Normal Bowel Sounds, No Organomegaly, No Pulsatile Mass, Soft Back: Normal Inspection Extremities: Normal Capillary Refill, Normal Inspection, Normal Range of Motion, Non Tender Neurologic/Psychiatric: Alert, Oriented x3, No Motor/Sensory Deficits, Normal Mood/Affect Coordination/Gait: Normal Finger to Nose, Normal Gait Motor/Sensory: No Motor Deficit, No Sensory Deficit Skin: Normal Color, Warm/Dry (THERESE GONZALEZ) Progress/Results/Core Measures Results/Orders Lab Results Laboratory Tests Test 03/21/22 11:11 03/21/22 11:20 03/21/22 12:00 03/21/22 12:22 Range/Units Glucometer 110 70-110 MG/DL White Blood Count 4.2 L 4.3-11.0 10^3/uL Red Blood Count 4.66 3.80-5.11 10^6/uL Hemoglobin 14.0 11.5-16.0 g/dL Hematocrit 42 35-52 % Mean Corpuscular Volume 90 80-99 fL Mean Corpuscular Hemoglobin 30 25-34 pg Mean Corpuscular Hemoglobin Concent 34 32-36 g/dL Red Cell Distribution Width 13.8 10.0-14.5 % Platelet Count 258 130-400 10^3/uL Mean Platelet Volume 10.7 9.0-12.2 fL Immature Granulocyte % (Auto) 0 % Neutrophils (%) (Auto) 68 42-75 % Lymphocytes (%) (Auto) 15 12-44 % Monocytes (%) (Auto) 16 H 0-12 % Eosinophils (%) (Auto) 1 0-10 % Basophils (%) (Auto) 1 0-10 % Neutrophils # (Auto) 2.8 1.8-7.8 10^3/uL Lymphocytes # (Auto) 0.6 L 1.0-4.0 10^3/uL Monocytes # (Auto) 0.7 0.0-1.0 10^3/uL Eosinophils # (Auto) 0.0 0.0-0.3 10^3/uL Basophils # (Auto) 0.0 0.0-0.1 10^3/uL Immature Granulocyte # (Auto) 0.0 0.0-0.1 10^3/uL Sodium Level 142 135-145 MMOL/L Potassium Level 3.1 L 3.6-5.0 MMOL/L Chloride Level 105 98-107 MMOL/L Carbon Dioxide Level 21 21-32 MMOL/L Anion Gap 16 H 5-14 MMOL/L Blood Urea Nitrogen 14 7-18 MG/DL Creatinine 0.97 0.60-1.30 MG/DL Estimat Glomerular Filtration Rate 61 BUN/Creatinine Ratio 14 Glucose Level 102 70-105 MG/DL Calcium Level 9.3 8.5-10.1 MG/DL Corrected Calcium 9.5 8.5-10.1 MG/DL Magnesium Level 1.8 1.6-2.4 MG/DL Total Bilirubin 0.7 0.1-1.0 MG/DL Aspartate Amino Transf (AST/SGOT) 19 5-34 U/L Alanine Aminotransferase (ALT/SGPT) 18 0-55 U/L Alkaline Phosphatase 113 40-136 U/L Total Creatine Kinase 27 L 29-168 U/L Troponin I < 0.028 <0.028 NG/ML C-Reactive Protein High Sensitivity 1.22 H 0.00-0.50 MG/DL B-Type Natriuretic Peptide 49.4 <100.0 PG/ML Total Protein 8.3 H 6.4-8.2 GM/DL Albumin 3.8 3.2-4.5 GM/DL Lipase 25 8-78 U/L Influenza Type A (RT-PCR) Not Detected Not Detecte Influenza Type B (RT-PCR) Not Detected Not Detecte SARS-CoV-2 RNA (RT-PCR) Not Detected Not Detecte Urine Color YELLOW Urine Clarity CLOUDY Urine pH 6.0 5-9 Urine Specific [place] 1.020 1.016-1.022 Urine Protein 2+ H NEGATIVE Urine Glucose (UA) NEGATIVE NEGATIVE Urine Ketones 1+ H NEGATIVE Urine Nitrite NEGATIVE NEGATIVE Urine Bilirubin 1+ H NEGATIVE Urine Urobilinogen 1.0 < = 1.0 MG/DL Urine Leukocyte Esterase NEGATIVE NEGATIVE Urine RBC (Auto) NEGATIVE NEGATIVE Urine RBC NONE /HPF Urine WBC NONE /HPF Urine Squamous Epithelial Cells 5-10 /HPF Urine Crystals NONE /LPF Urine Bacteria FEW H /HPF Urine Casts PRESENT /LPF Urine Hyaline Casts 5-10 H /LPF Urine Mucus MODERATE H /LPF Urine Culture Indicated NO (BRENDA CARROLL MD) Vital Signs/I&O 03/21/22 03/21/22 03/21/22 10:55 11:25 13:28 Temp 36.3 36.3 Pulse 66 60 61 61 83 Resp 16 16 B/P (MAP) 138/104 (115) 136/75 (95) 169/83 132/84 (100) 126/82 (97) Pulse Ox 92 97 O2 Delivery Room Air Room Air 03/22/22 00:00 Intake Total 1000 ml Balance 1000 ml (BRENDA CARROLL MD) Comment Sinus bradycardia, 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 (THERESE GONZALEZ) Departure Communication (PCP) Patient on arrival is alert and orient x3. She has no focal neural deficits. NIH is 0. No headache, visual changes, unilateral muscle weakness or sensory changes. She has some mild abdominal discomfort but no specific tenderness on palpation. No recent URI. Patient vital signs were stable. CT scan of the head negative for any acute abnormality. Chronic ischemic changes noted. Due to negative NIH and currently negative presentation no further imaging at this time. EKG without evidence of arrhythmia, ST elevation or depression. Cardiac work-up unremarkable. She denies of any dark tarry stool. Hemoglobin 14. She reports history of low white blood count which was at 4.2. Lab work was otherwise unremarkable. Chest x-ray was unremarkable. Patient was given a liter of fluid. Urinalysis did return without evidence of infection. Did appear dry. Her potassium was 3.1 was given oral potassium. She states at the time of the syncopal episode she was standing on the ledge. She is unsure if it was right before she stood up. She states she was under shade at the time. She was at the parade at the time with high temperature. She did take medication right before without eating much food. Similar symptoms in the past. No known history of cardiac disease, arrhythmia. No known history of stroke. History of colon cancer without chemotherapy or radiation. Due to patient's presentation with possible 3 syncopal episodes recommend admission for observation. She states she would rather go home at this time. She states she has family in town and is trying bowel weekend. She reports if any worsening symptoms she will return back to ED for further evaluation. Discussed importance of staying hydrated. If any reoccurring episodes she needs return back to ED immediately. Unclear if this is secondary to arrhythmia, overheated, vasovagal, etc. Follow- up with PCP in 2 to 3 days for evaluation outpatient. (THERESE GONZALEZ) Impression Primary Impression: Syncope Disposition: 01 HOME, SELF-CARE Condition: Stable Departure-Patient Inst. Decision time for Depature: 13:17 (THERESE GONZALEZ) Referrals: [facility] (PCP) Primary Care Physician RACHEL BAKER (Family) Primary Care Physician Patient Instructions: Syncope (Fainting) (DC) Add. Discharge Instructions: Need to continue drinking fluids and electrolytes. Strongly recommend follow-up with your PCP in 2 to 3 days for reevaluation. If any worsening symptoms you need to return back to ED. ATTENDING PHYSICIAN NOTE: I was physically present as attending physician in the emergency department during the care of this patient. I have reviewed the details if this case including clinical presentation, labs, vital signs, imaging, etc. with DANIELLA Klein. I have recommended admission for observation due to unclear etiology of multiple syncopal episodes. Admission was recommended by Mr. Gonzalez, but patient declined because she had family in town for the [employer] football game and parade. Risk of discharge vs admission were explained to the patient. She requested discharge. I did not personally examine or interview this patient. (BRENDA CARROLL MD) THERESE GONZALEZ Mar 21, 2022 11:18 BRENDA CARROLL MD Mar 22, 2022 16:31
[2022-03-21 11:25] VITALS: BP_SYST 126; BP_SYST 132; BP_SYST 136; BP_DIAS 75; BP_DIAS 82; BP_DIAS 84
[2022-03-21 11:29] LABS: BASOPHILS % (AUTO) 1 % (0-10); EOSINOPHILS % (AUTO) 1 % (0-10); HEMATOCRIT 42 % (35-52); LYMPHOCYTES # (AUTO) 0.6 10^3/uL (1.0-4.0); LYMPHOCYTES % (AUTO) 15 % (12-44); MEAN CORPUSCULAR HEMOGLOBIN 30 pg (25-34); MEAN CORPUSCULAR HGB CONC 34 g/dL (32-36); MEAN CORPUSCULAR VOLUME 90 fL (80-99); MEAN PLATELET VOLUME 10.7 fL (9.0-12.2); MONOCYTES # (AUTO) 0.7 10^3/uL (0.0-1.0); MONOCYTES % (AUTO) 16 % (0-12); NEUTROPHILS # (AUTO) 2.8 10^3/uL (1.8-7.8); NEUTROPHILS % (AUTO) 68 % (42-75); PLATELET COUNT 258 10^3/uL (130-400); WHITE BLOOD COUNT 4.2 10^3/uL (4.3-11.0)
[2022-03-21 11:46] LABS: ALBUMIN 3.8 GM/DL (3.2-4.5)
[2022-03-21 11:47] LABS: CHLORIDE 105 MMOL/L (98-107); POTASSIUM 3.1 MMOL/L (3.6-5.0); SODIUM 142 MMOL/L (135-145)
--- NOTE | 2022-03-21 11:47 | Diagnostic Imaging Report ---
PROCEDURE: CT head without contrast. TECHNIQUE: Multiple contiguous axial images were obtained through the brain without the use of intravenous contrast. Auto Exposure Controls were utilized during the CT exam to meet ALARA standards for radiation dose reduction. INDICATION: Syncope, dizziness. COMPARISON: None available. FINDINGS: Mild atrophy. 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 No intracranial hemorrhage. Periventricular and subcortical white matter hypodensities are present. Though nonspecific, these most likely relate to mild background chronic small vessel white matter ischemic disease. No definite CT evidence of an acute ischemic infarction. Mild background vascular calcifications. The bilateral ocular lenses are absent. The paranasal sinuses are clear. The calvarium and extracalvarial soft tissues are unremarkable. IMPRESSION: No acute intracranial abnormality with mild atrophy and mild to moderate background chronic ischemic changes as described above. If there remains clinical concern for underlying recent infarction, further evaluation with MRI of the brain could be considered. Dictated by: Dictated on workstation # [id number]
[2022-03-21 11:48] LABS: CALCIUM 9.3 MG/DL (8.5-10.1)
[2022-03-21 11:49] LABS: GLUCOSE 102 MG/DL (70-105); TOTAL PROTEIN 8.3 GM/DL (6.4-8.2)
[2022-03-21 11:50] LABS: CARBON DIOXIDE 21 MMOL/L (21-32)
[2022-03-21 11:51] LABS: BILIRUBIN,TOTAL 0.7 MG/DL (0.1-1.0)
[2022-03-21 11:53] LABS: ALKALINE PHOSPHATASE 113 U/L (40-136); CREATININE SERUM 0.97 MG/DL (0.60-1.30); GFR ESTIMATED 61
[2022-03-21 11:54] LABS: BUN/CREATININE RATIO 14
[2022-03-21 11:56] LABS: ALANINE AMINOTRANSFERASE 18 U/L (0-55); MAGNESIUM 1.8 MG/DL (1.6-2.4)
[2022-03-21 11:57] LABS: CREATINE KINASE 27 U/L (29-168); LIPASE 25 U/L (8-78)
[2022-03-21 12:31] LABS: CLARITY,URINE CLOUDY; COLOR,URINE YELLOW; GLUCOSE, URINE (UA) NEGATIVE (NEGATIVE); KETONES,URINE 1+ (NEGATIVE); LEUKOCYTE ESTERASE ,URINE NEGATIVE (NEGATIVE); NITRITE,URINE NEGATIVE (NEGATIVE); PROTEIN,URINE 2+ (NEGATIVE)
[2022-03-21 12:49] LABS: BILIRUBIN,URINE 1+ (NEGATIVE)
[2022-03-21 12:50] LABS: BACTERIA,URINE FEW /HPF
--- NOTE | 2022-03-21 13:16 | Diagnostic Imaging Report ---
INDICATION: Syncope, dizziness, cough. COMPARISON: 01/07/2021. TECHNIQUE: Single radiograph of the chest dated 03/21/2022. FINDINGS: The cardiac silhouette is upper limits of normal in size, though stable. No significant pulmonary vascular congestion. Minimal right basilar interstitial opacities are present. Otherwise, the lungs appear clear. No pleural effusion. No pneumothorax. No acute osseous abnormality. IMPRESSION: Minimal right basilar atelectasis and/or pneumonitis. Dictated by: Dictated on workstation # [id number]
[2022-03-21 13:28] VITALS: BP 169/83
[2022-03-21] MEDS ORDERED: KCL 20 MEQ TAB (K-DUR) PO ONE (13:30)
== END 2022-03-21 13:28 | disposition home or self-care (01) ==
LOC: EDUNIT# 10:55 → ER 10:56
DX: R55 Syncope and collapse (principal); Z20.822 Contact with and (suspected) exposure to COVID-19
CPT/HCPCS: 36415; 70450; 71045; 80053; 81000; 82550; 82947; 83690; 83735; 83880; 84484; 85025; 86141; 87636; 93005

== ENCOUNTER → 2022-05-06 | Outpatient (CLI) | payer MEDICARE, MEDICAID ==
[~2022-05-06] VITALS: Ht 165.1 cm; Wt 92.5 kg
== END | disposition home or self-care (01) ==
LOC: PREOP 05:40
PROVIDERS: ATTEND Surgery
DX: Z01.818 Encounter for other preprocedural examination (principal)

== ENCOUNTER 2022-05-18 08:20 | Day surgery (SDC) | payer MEDICARE, MEDICAID ==
[~2022-05-18] VITALS: Ht 165.1 cm; Wt 92.5 kg
[2022-05-18] MEDS ORDERED: LACTATED RINGERS 1,000 ML IV STA (08:25)
[2022-05-18 09:05] VITALS: BP 138/89
[2022-05-18] MEDS ORDERED: PROPOFOL INJECTION 50 ML IV ONE (09:55)
[2022-05-18 10:27] VITALS: BP 129/63
[2022-05-18 10:30] VITALS: BP 140/67
--- NOTE | 2022-05-18 10:30 | Progress Note-Post Operative ---
Post-Operative Progess Note Surgeon (s)/Board Operator (s) Surgeon JALEEL ESTEVEZ DO Board Operator: Wenceslao Marte, MSIII Pre-Operative Diagnosis Hx of colon CA, surveillance colonoscopy Post-Operative Diagnosis Polyp Colitis Int hemorrhoids Procedure & Operative Findings Date of Procedure 05/18/22 Procedure Performed/Findings Colonoscopy with snare polypectomy Colonoscopy with hot bx PROCEDURE NOTE: After informed consent was obtained, the patient was brought to the endoscopy suite, placed in bed in left lateral decubitus position. She was administered IV sedation by the CHANGE CONTROL SPECIALIST who then monitored her vitals the entire time, heart rate, blood pressure and pulse ox and the scope was inserted. Immediately upon entering noted what looked like tissue, but could have been blood clot; suctioned it up and sent to pathology. Then pushed all the way to about 120 cm and pushed into the cecum, took a picture of appendiceal orifice and noted the ileo-cecal valve. Then slowly withdrew the scope insufflating to look circumferentially at the garcia starting in the cecum and just outside the cap found a polyp. Elected to do a snare polypectomy to completely remove it. Then up the ascending colon to the hepatic flexure, down the transverse colon, to the splenic flexure and into the descending colon. Here I found a segment of colon with colitis, sloughing of the mucosa and inflammation. I elected to do 3 hot biopses throughout here. Then continued down the anastomosis and found polyps vs inflamation on the anastomosis and elected to do a hot biopsy of these. Finally into the rectal vault and retroflexed the scope. Took picture of the internal hemorrhoids. The patient tolerated the procedure. She was recovered in endoscopy suite. Recommended for repeat colonoscopy in 1 year. Anesthesia Type IV sedation by CHANGE CONTROL SPECIALIST Estimated Blood Loss Estimated blood loss (mL): scant Specimens/Packing Specimens Removed ??tissue Cecal polyp inflammatory tissue biopsy anastomosis biopsies JALEEL ESTEVEZ DO May 18, 2022 10:30
--- NOTE | 2022-05-18 10:32 | Endoscopy Discharge Instruct ---
Endo Procedure/Findings Findings 1.: Polyp 2.: Colitis 3.: Internal Hemorrhoids Discharge Instructions - Activity: You might feel a little sleepy until tomorrow. This is due to the medicine you received to relax you. Until tomorrow, you should: NOT drive a car, operate machinery or power tools. NOT drink any alcoholic beverages. NOT make any important decisions or sign importortant papers. Do not return to work until tomorrow, unless otherwise instructed. Resume previous activities tomorrow. Diet: Start by taking liquids. If you tolerate liquids, advance to solid food. 1.: Colonoscopy in 1 year Notify Physician - If you experience excessive bleeding, unusual abdominal pain, fever, or chest pain, contact your doctor immediately. JALEEL ESTEVEZ DO May 18, 2022 10:31
[2022-05-18 10:57] VITALS: BP 178/91
--- NOTE | 2022-05-18 11:35 | Anesthesia-General Post-Op ---
MAC Patient Condition Mental Status/LOC: Same as Preop Cardiovascular: Satisfactory Nausea/Vomiting: Absent Respiratory: Satisfactory Pain: Controlled Complications: Absent Post Op Complications Complications None Follow Up Care/Instructions Patient Instructions None needed. Anesthesiology Discharge Order Discharge Order Patient is doing well, no complaints, stable vital signs, no apparent adverse anesthesia problems. No complications reported per nursing. REDD SULLIVAN CRNA May 18, 2022 11:35
== END 2022-05-18 11:08 | disposition home or self-care (01) ==
LOC: ENDO 08:20
PROVIDERS: ATTEND Surgery
DX: Z12.11 Encounter for screening for malignant neoplasm of colon (principal); D12.0 Benign neoplasm of cecum; K52.9 Noninfective gastroenteritis and colitis, unspecified; K64.8 Other hemorrhoids; K63.89 Other specified diseases of intestine; Z85.038 Personal history of other malignant neoplasm of large intestine; Z90.49 Acquired absence of other specified parts of digestive tract; Z86.16 Personal history of COVID-19; E66.9 Obesity, unspecified; Z68.33 Body mass index [BMI] 33.0-33.9, adult